=== PATIENT | female | born 2000 | race Caucasian/White ===

== ENCOUNTER 2021-02-16 23:18 | Emergency (ER) | payer MEDICAID ==
[~2021-02-16] VITALS: Ht 172.7 cm; Wt 86.2 kg
[2021-02-17] MEDS ORDERED: ACETAMINOPHEN 500 MG TAB PO ONE (01:00)
[2021-02-17 06:21] VITALS: BP 97/67
== END 2021-02-17 06:45 | disposition home or self-care (01) ==
LOC: EDBD 23:18 → ER 23:18
DX: O9A.212 Injury, poisoning and certain other consequences of external causes complicating pregnancy, second trimester (principal); S83.004A Unspecified dislocation of right patella, initial encounter; X50.9XXA Other and unspecified overexertion or strenuous movements or postures, initial encounter; Y93.89 Activity, other specified; Y92.89 Other specified places as the place of occurrence of the external cause; Y99.8 Other external cause status; Z3A.24 24 weeks gestation of pregnancy
CPT/HCPCS: 29505; 73562